=== PATIENT | male | born 1980 | race Caucasian/White ===

== ENCOUNTER 2016-10-13 11:04 | Emergency (ER) | payer BC ==
[~2016-10-13] VITALS: Ht 198.1 cm; Wt 102.0 kg
[~2016-10-13 11:04] MED LIST: PARO-18 PO
--- OUTSIDE RECORDS SUMMARY | 2016-10-13 11:07 | XMS REPORT | Continuity of Care Document ---
Author Author [facility] Organization [facility] Address Unknown Phone Unavailable Allergies Active Description Code Type Severity Reaction Onset Reported/Identified Relationship to Patient Clinical Status Yes No Known Medication Allergies NKMA N/A N/A 05/25/2014 Medications Problems Procedures Results Encounters ACCT No. Visit Date/Time Discharge Status Pt. Type Provider Facility Loc./Unit Complaint [id number] 08/19/2013 09:42:00 08/19/2013 23 :59:59 CLS Outpatient
--- OUTSIDE RECORDS SUMMARY | 2016-10-13 11:07 | XMS REPORT | Referral Summary ---
Author Organization Unknown Address Unknown Phone Unavailable Care Team Providers Care Manager Icu Name Role Phone Prasanna Joyner Primary Care Physician [phone] Encounter VC Date(s): 07/23/14 - 07/23/14 [facility], [place] [facility] [address] [place] [id number] Discharge Diagnosis: Dermal nevus of pubic region Discharge Disposition: Home or Self Care Attending Physician: Glenn Joyner MD Admitting Physician: Glenn Joyner MD Vital Signs Most recent to 1 oldest [Reference Range]: Temperature Tympanic 36 degC [36.6-38.1 degC] *LOW* (07/23/14 11:01 AM) Peripheral Pulse 89 bpm Rate [60-100 bpm] (07/23/14 11:01 AM) Respiratory Rate 16 br/min [14-20 br/min] (07/23/14 11:01 AM) Blood Pressure 122/74 mmHg [90-140/60-90 mmHg] (07/23/14 11:01 AM) Most recent to 1 oldest [Reference Range]: SpO2 100 % (07/23/14 11:01 AM) Problem List Condition Effective Dates Status Health Status Informant Alcoholism(Confirmed Active ) Anxiety(Confirmed) Active Family history of Active colon cancer(Confirmed) Fracture left radius Active & ulna(Confirmed) Gastritis(Confirmed) Active Deaf left Active ear(Confirmed) Obesity(Confirmed) Active patient Allergies, Adverse Reactions, Alerts No Known Medication Allergies Medications Centrum 1 tabs, Daily, 0 Refill(s) Start Date: 05/25/14 Status: Ordered ibuprofen 0 Refill(s) Start Date: 05/25/14 Status: Ordered Results No data available for this section Immunizations Vaccine Date Refusal Reason tetanus/diphth/pertuss (Tdap) adult/adol 03/11/10 hepatitis A-hepatitis B vaccine 06/18/06 hepatitis A-hepatitis B vaccine 09/28/04 hepatitis A-hepatitis B vaccine 08/31/04 Procedures Procedure Date Related Diagnosis Body Site Shaving of epidermal or dermal lesion, single 07/23/14 lesion, scalp, neck, hands, feet, genitalia; lesion diameter 0.6 to 1.0 cm September 27, 2012 Colonoscopy, normal repeat in 09/27/12 5 years LEFT KNEE ACL RECONSTRUCTION-REPAIR LATERAL 10/02/05 MENISCUS Hernia repair 2003 Vasectomy 2002 ORIF - Open reduction and internal fixation 1991 of fracture1 1fracture left radius and ulna Social History Social History Type Response Smoking Status Never smoker Assessment and Plan Extracted from: Title: Office Visit Note Author: Gelnn Joyner MD Date: 07/23/14 Assessment/Plan Dermal nevus of pubic region Excision was performed today with the patient' s permission verbally. I discussed wound care. Good hemostasis was achieved before patient left. Discussed washing and keeping the area clean. Oozing triple antibiotic ointment. Follow-up immediately if there is any signs or symptoms of infection.
--- OUTSIDE RECORDS SUMMARY | 2016-10-13 11:07 | XMS REPORT | Referral Summary ---
Author Author [facility] [place], [facility] Care Organization [facility] [place] [facility] Address Unknown Phone Unavailable Care Team Providers Care Delivery Representative Name Role Phone No PCP, States Primary Care Physician [phone] Encounter VC Date(s): 03/14/16 - 03/14/16 [facility] [place] [address] [place] [id number] Discharge Disposition: 01-Home or Self Care Attending Physician: Forest Gillespie PA-C Admitting Physician: Forest Gillespie PA-C Vital Signs Most recent to 1 oldest [Reference Range]: Temperature Tympanic 36.7 degC [36.6-38.1 degC] (03/14/16 4:19 PM) Peripheral Pulse 74 bpm Rate [60-100 bpm] (03/14/16 4:19 PM) Blood Pressure 144/78 mmHg [90-140/60-90 mmHg] *HI* (03/14/16 4:19 PM) SpO2 97 % (03/14/16 4:19 PM) Problem List Condition Effective Dates Status Health [...] Vaccine Date Refusal Reason tetanus/diphth/pertuss (Tdap) adult/adol 03/14/16 tetanus/diphth/pertuss (Tdap) adult/adol 03/11/10 hepatitis A-hepatitis B vaccine 06/18/06 hepatitis A-hepatitis B vaccine 09/28/04 hepatitis A-hepatitis B vaccine 08/31/04 Procedures Procedure Date Related Diagnosis Body Site September 27, 2012 Colonoscopy, normal repeat in 09/27/12 5 years LEFT KNEE ACL RECONSTRUCTION-REPAIR LATERAL 10/02/05 MENISCUS Hernia repair 2004 Vasectomy 2002 ORIF - Open reduction and internal fixation 1992 of fracture1 1fracture left radius and ulna Social History Social History Type Response Smoking Status Never smoker Assessment and Plan Extracted from: Title: Lidocaine & Marcaine Author: Nancy Flores RN Date: 03/14/16 Patient's right thumb was injected with 2% Lidocaine, lot # [id number], Exp , 5cc mixed with Marcaine 0.5%, lot # [id number], Exp 06/2017, 5 cc mixed together in a 10cc syringe by Forest Gillespie before examining right thumb. Extracted from: Title: R thumb smash injury Author: Forest Gillespie PA-C Date: 03/14/16 Assessment/Plan Injury of finger Wash daily with soap and water keep clean and dry, use stat splint as needed forprotection. Follow up if signs of infection, encouraged to perform gentlerange of motion. Diagnosis and treatment discussed. Patient advised to follow up with PCP in 2-3 days. Patient stable upon discharge , alert and orientated with no apparent distress, and indicated understanding of discharge instructions. Ordered: XR Finger Thumb Right
[2016-10-13 11:08] VITALS: Ht 198.1 cm; Wt 102.0 kg
[2016-10-13] MEDS ORDERED: OMEG300C PO (11:42)
[2016-10-13] MEDS ORDERED: MULT1TAB69 PO (11:42)
--- NOTE | 2016-10-13 11:48 | NUR ---
PAIN STATUS/PROVIDER NOTIFIED PT LYING IN LEFT POSITION AND ROCKING BACK AND FORTH AND MOANING, KNEES DRAWN TO CHEST AND REPORTING SEVERE PAIN. SKIN IS MOIST. PT RATES PAIN A 9/10 TO LEFT FLANK/LEFT ABDOMEN. DR. DUMONT NOTIFIED, NO ORDERS AT THIS TIME.
--- NOTE | 2016-10-13 12:13 | ERPDOC ---
Departure Disposition Decision Date: Oct 13, 2016 Disposition Decision Time: 13:23 (DARIA JACKSON APRN) Disposition: 01 DISCHARGED HOME, SELF-CARE Impression Impression (DARIA JACKSON APRN) Impression: Primary Impression: Left ureteral stone Additional Impression: LLL pneumonia Pneumonia type: due to unspecified organism Qualified Codes: J18.1 - Lobar pneumonia, unspecified organism Severity: Moderate (DARIA JACKSON APRN) Condition: Improved Seen By: Mid-level only (DARIA JACKSON APRN) Referrals: SWATI LEBRON MD (Family) Patient Instructions: Kidney Stones (ED) Problems/Meds/Labs Reviewed?: Yes Medications reviewed and manag: Yes (DARIA JACKSON APRN) Additional Instructions: You are passing a kidney stone on left. You may take [place] 5/325mg, 1-2 tabs every 4-6 hour as needed for pain. This medication may cause drowsiness so avoid driving, operating of the machinery or drinking alcohol while taking. This medication may also cause constipation so you meaning to take a stool softener while taking. You may take 800 mg of ibuprofen every 8 hours with food for pain. Take Flomax 0.4 mg once daily. Drink 8-12 glasses of water daily. Strain your urine for stone. If you have not passed kidney stone (still having pain) by Sunday follow with Dr. Engel or urologist of your choice for re-evaluation. Your CT scan showed a possible early pneumonia in LLL. Take azithromycin as ordered. Follow up with your PCP for re-evaluation after finishing antibiotic. Follow treatment plan. Follow up care ordered?: Yes Mental Status: Alert, Oriented (DARIA JACKSON APRN) Scripts Azithromycin (Azithromycin) 250 Mg Tablet 1 TAB PO DAILY, #6 TAB TAKE TWO TABLETS ON DAY ONE, THEN ONE TABLET DAILY UNTIL ALL TAKEN. Prov: DARIA JACKSON APRN 10/13/16 Tamsulosin HCl (Flomax) 0.4 Mg Capsule 0.4 MG PO HS for 5 Days, #5 CAP Take 1 capsule, by mouth, one time a day at BEDTIME. Prov: DARIA JACKSON APRN 10/13/16 Hydrocodone/Acetaminophen ([place] 5-325 Tablet) 5-325 Tablet 1-2 TAB PO Q4-6HPRN for PAIN, #30 TAB Prov: DARIA JACKSON APRN 10/13/16 HPI - Abdominal Pain General Chief Complaint: Abdominal Pain Stated Complaint: L FLANK PAIN Time Seen by Provider: 12:13 Source: patient (DARIA JACKSON APRN) Time Seen by Provider: 12:19 (JULISSA DUMONT DO) HPI - Abdominal Pain Initial Comments 36-year-old male presents to ER with complaints of periumbilical pain and left flank pain. Patient states pain started out in his left flank about 2 hours ago. Now pain is reproducible in periumbilical area. Patient admits nausea and has had several emesis Patient states he had a difficult time trying to urinate and urine was dark in color. Patient report previous kidney stone approx. 10-12 years ago. Pain Scale: Now: 9/10 Quality: aching, sharpness Location: periumbilical Associated Symptoms: nausea/vomiting, DENIES: chest pain, diaphoresis, fatigue , fever/chills, headache, heartburn, shortness of breath, swelling/mass in abdomen, weakness (DARIA JACKSON APRN) Allergies: Coded Allergies: No Known Allergies (Unverified , 12/31/11) Past History Past Medical History Metabolic: DENIES: diabetes Cardiac: DENIES: angina Respiratory: DENIES: asthma GI: DENIES: ulcers Male: kidney stones Neurological: DENIES: seizures Musculoskeletal: DENIES: back pain Psychological: anxiety (DARIA JACKSON APRN) Surgical History General: hernia Reproductive/: other (vasectomy) (DARIA JACKSON APRN) Family History Family PMH: FOUND: other (noncontributory) (DARIA JACKSON APRN) Social History Current Occupational Status: employed (DARIA JACKSON APRN) Review of Systems Constitutional Constitutional: DENIES: chills, dizziness, fever, weakness (DARIA JACKSON APRN) Eyes General: DENIES: erythema, exudate Lids/Accessories: DENIES: erythema, swelling (DARIA JACKSON APRN) ENMT Ears: DENIES: pain Hearing: DENIES: hearing loss Sinuses: DENIES: congestion, rhinorrhea Mouth/Throat: DENIES: sore throat (DARIA JACKSON APRN) Cardiovascular Cardiac: DENIES: chest pain, murmur Rhythm/Rate: DENIES: palpitations (JACKSON,DARIA A DISTRICT [employer]CH MANAGER) Pulmonary Respiratory: DENIES: cough, dyspnea (JENNA JACKSONS A DISTRICT BR[employer]CH MANAGER) GI Upper Abdomen: nausea, DENIES: pain, vomiting Lower Abdomen: pain, see HPI, DENIES: blood in stool, diarrhea (JACKSONJENNAS A DISTRICT [employer] MANAGER) General: DENIES: dysuria, pain (JACKSONJENNAS A DISTRICT [employer]CH MANAGER) Musculoskeletal General: DENIES: joint pain, pain, tenderness (JENNA JACKSONS A DISTRICT BR[employer]CH MANAGER) Integumentary Skin: DENIES: color change, itching, rash (JACKSONJENNAS A DISTRICT [employer] MANAGER) Neurological General: DENIES: ataxia, change in strength, numbness, paralysis/paresis, weakness (JENNA JACKSONS A DISTRICT BR[employer]CH MANAGER) Psychiatric Psychiatric: DENIES: anxiety, depression, nervousness (JENNA JACKSONS A DISTRICT BRANCH MANAGER) Physical Exam General General Nourishment: well nourished, well developed, adult General Body Habitus: well groomed (JENNA JACKSONS A DISTRICT BRANCH MANAGER) Vitals and Pain First Documented Vital Signs Date Time Temp Pulse Resp B/P Pulse Ox O2 Delivery O2 Flow Rate FiO2 10/13/16 11:08 98.1 76 16 165/76 100 Room Air (JULISSA DUMONT DO) Vitals and Pain Weight: Kilograms: 102.000 Height (feet): 6 Height (inches): 6.00 Triage Pain Scale: (JENNA JACKSONS A DISTRICT [employer] MANAGER) Eyes (brief) Eyes Brief: found: EOMI (JENNA JACKSONS A DISTRICT [employer] MANAGER) ENMT (brief) ENMT Brief: NOT FOUND: nasal exudate, nasal swelling (JENNA JACKSONS A DISTRICT [employer]CH MANAGER) Neck (brief) Neck: FOUND: trachea midline (JENNA JACKSONS A DISTRICT BR[employer]CH MANAGER) Respiratory (brief) Respiratory: FOUND: clear all delong, equal bilaterally, symmetrical (RENETTA DARIA A DISTRICT [employer]CH MANAGER) Cardiovascular (brief) Cardiac: FOUND: regular rate, regular rhythm (RENETTADARIA A DISTRICT BR[employer]CH MANAGER) Abdomen Palpation: FOUND: involuntary guarding, soft, tender (reproducible TTP in periumbilical area), voluntary guarding, NOT FOUND: McBurney's point tender, Psoas sign, Rosving's sign, hepatomegaly, rebound, splenomegaly Auscultation: FOUND: normoactive (x4) (JENNA JACKSONS A DISTRICT BR[employer]CH MANAGER) Musculoskeletal (brief) Musculoskeletal Brief: NOT FOUND: deformity, loss of motion (DARIA JACKSON APRN) Integumentary (brief) Integumentary Brief: FOUND: dry, pink, warm (DARIA JACKSON APRN) Neurologic (brief) Neurological Brief: FOUND: motor-no gross deficits, sensory-no gross deficits ( DARIA JACKSON APRN) Psychiatric (brief) Psychiatric Brief: FOUND: alert, oriented (DARIA JACKSON APRN) Differential Diagnoses Considering: Appendicitis, Diverticulitis, Ileus, Pyelonephritis, Renal Colic, UTI (DARIA JACKSON APRN) Progress Results/Orders Orders Procedure Category Date Status Time Cbc W/Auto LAB 10/13/16 Complete Diff-Reflex Manual 12:14 Cmp - Comprehensive LAB 10/13/16 Complete Metabolic 12:14 Iv Lock (Ed Only) EDM 10/13/16 Transmitted 12:14 Normal Saline (Normal PHA 10/13/16 Complete Saline Iv) 12:14 Hydromorphone PHA 10/13/16 Complete (Dilaudid) 12:15 Ondansetron Inj PHA 10/13/16 Complete (Zofran) 12:15 Ct Renal W/O Contrast CT 10/13/16 Resulted Ketorolac (Toradol) PHA 10/13/16 Complete 13:30 UA, LAB 10/13/16 Complete Dip&Micro(Complete) & 13:23 (JULISSA DUMONT DO) Lab Results Laboratory Tests Test 10/13/16 11:44 10/13/16 13:23 White Blood Count 16.5T/MM3 Red Blood Count 5.05M/MM3 Hemoglobin 15.8GM/DL Hematocrit 44.9% Mean Corpuscular Volume 88.9UM3 Mean Corpuscular Hemoglobin 31.3UUG Mean Corpuscular Hemoglobin Concent 35.2GM/DL RDW Standard Deviation 37.3FL Platelet Count 314T/MM3 Mean Platelet Volume 9.7UM3 Immature Granulocyte % (Auto) % Neutrophils (%) (Auto) % Lymphocytes (%) (Auto) % Monocytes (%) (Auto) % Eosinophils (%) (Auto) % Basophils (%) (Auto) % Absolute Immature Granulocyte (auto T/MM3 Absolute Neutrophils (auto) T/MM3 Absolute Lymphocytes (auto) T/MM3 Absolute Monocytes (auto) T/MM3 Absolute Eosinophils (auto) T/MM3 Absolute Basophils (auto) T/MM3 Neutrophils % (Manual) 83.0% Lymphocytes % (Manual) 9.0% Monocytes % (Manual) 7.0% Eosinophils % (Manual) 1.0% Absolute Neutrophils (Manual) 13.7T/MM3 Lymphocytes # (Manual) 1.5T/MM3 Monocytes # (Manual) 1.2T/MM3 Eosinophils # (Manual) 0.2T/MM3 Red Cell Morphology Comment Normal Turbidity < 20 Sodium Level 144MEQ/L Potassium Level 3.8MEQ/L Chloride Level 105MEQ/L Carbon Dioxide Level 24MEQ/L Anion Gap 15MEQ/L Blood Urea Nitrogen 15.0MG/DL Creatinine 1.2MG/DL Glomerular Filtration Rate Calc 68 BUN/Creatinine Ratio 13RATIO Glucose Level 125MG/DL Calculated Osmolality 279MOSM/KG Calcium Level 9.7MG/DL Total Bilirubin 0.90MG/DL Icterus Index < 2 Aspartate Amino Transf (AST/SGOT) 37U/L Alanine Aminotransferase (ALT/SGPT) 34U/L Alkaline Phosphatase 49U/L Total Protein 6.3G/DL Albumin 3.9G/DL Globulin 2.4G/DL Albumin/Globulin Ratio 1.6RATIO Chemistry Specimen Hemolysis < 15 Urine Collection Type Voided-not cc-midstr Urine Color Yellow Urine Turbidity Sl cloudy Urine pH >=9.0 Urine Specific [place] 1.015 Urine Protein 1+ Urine Glucose (UA) Negative Urine Ketones 1+ Urine Blood 3+ Urine Nitrite Negative Urine Bilirubin Negative Urine Urobilinogen 0.2EU/DL Urine Leukocyte Esterase Negative Urine RBC Tntc/HPF Urine WBC None seen/HPF Urine Amorphous Phosphates Many Urine Bacteria 2+ Urine Culture Indicated Cult not indicated (JULISSA DUMONT DO) Medications Current ED Medications Sodium Chloride (Normal Saline IV) 1,000 ml @ 200 mls/hr Q5H ONCE IV Last administered on 10/13/16 12:23; Start 10/13/16 at 12:14; Stop 10/13/16 at 14:38 ; Status DC Hydromorphone HCl (Dilaudid) 1 mg O ONCE IV Last administered on 10/13/16 12: 27; Start 10/13/16 at 12:15; Stop 10/13/16 at 12:16; Status DC Ondansetron HCl (Zofran) 4 mg O ONCE IV Last administered on 4/14/17at 12:24; Start 10/13/16 at 12:15; Stop 10/13/16 at 12:16; Status DC Ketorolac Tromethamine (Toradol) 30 mg O ONCE IV Last administered on 13:26; Start 10/13/16 at 13:30; Stop 10/13/16 at 13:31; Status DC (JULISSA DUMONT DO) Progress Progress Patient reports that pain has significantly improved after dilaudid and toradol. WBC 16.5 no bands CMP unremarkable UA RBC Tntc Patient remain pain free at this time. CT indicates left ureteral calculi I discussed CT findings with patient including minor infectious/inflammatory process of the lower left lobe. Patient has seen someone at the [place] [facility] [place] in the past and he will follow with him early next week if he feels like he has not passed the stone. Patient verbalized understanding of treatment plan, follow-up as discussed and return precautions. Patient sent with strainer. (DARIA JACKSON APRN) CT CT : CT: Renal IV contrast Interpretation: Abnormal (left ureteral stone, Gabriel of the left lower lobe which suggestive of minor infection or inflamation), Reviewed Written Report (DARIA JACKSON APRN) DARIA JACKSON APRN Oct 13, 2016 12:13 JULISSA DUMONT DO Oct 13, 2016 18:45
[2016-10-13] MEDS ORDERED: NORMAL SALINE 1,000 ML IV ONE (12:14)
[2016-10-13] MEDS ORDERED: ONDANSETRON 4mg/2ml INJECTION IV ONE (12:15)
[2016-10-13] MEDS ORDERED: HYDROMORPHONE 2mg/ml INJECTION IV ONE (12:15)
[2016-10-13 12:22] LABS: HCT - HEMATOCRIT 44.9 % (41-53); HGB - HEMOGLOBIN 15.8 GM/DL (13.5-17.5); MEAN CORPUSCULAR HGB 31.3 UUG (26-34); MEAN CORPUSCULAR HGB CONC(MCHC 35.2 GM/DL (31-37); MEAN CORPUSCULAR VOLUME 88.9 UM3 (80-100); MEAN PLATELET VOLUME 9.7 UM3 (9.4-12.4); RED BLOOD COUNT 5.05 M/MM3 (4.50-5.90); WBC - WHITE BLOOD COUNT 16.5 T/MM3 (4.5-11.0)
[2016-10-13 12:29] LABS: ALBUMIN 3.9 G/DL (3.5-5.0); ALBUMIN/GLOBULIN RATIO 1.6 RATIO (1.1-2.2); ALKALINE PHOSPHATASE 49 U/L (38-126); ALT (SGPT) 34 U/L (21-72); ANION GAP 15 MEQ/L (5-15); AST (SGOT) 37 U/L (17-59); BUN/CREATININE RATIO 13 RATIO (6-26); CALCIUM 9.7 MG/DL (8.4-10.2); CHLORIDE 105 MEQ/L (98-107); CO2 - CARBON DIOXIDE 24 MEQ/L (22-30); CREATININE 1.2 MG/DL (0.8-1.5); GLOMERULAR FILTRATION RATE 68; GLUCOSE 125 MG/DL (75-110); POTASSIUM 3.8 MEQ/L (3.6-5); SODIUM 144 MEQ/L (134-144); TOTAL PROTEIN 6.3 G/DL (6.3-8.2)
--- OUTSIDE RECORDS SUMMARY | 2016-10-13 12:41 | XMS REPORT | Continuity of Care Document ---
Author Author [facility] Organization [facility] Address Unknown Phone Unavailable Allergies Active Description Code Type Severity Reaction Onset Reported/Identified Relationship to Patient Clinical Status Yes No Known Medication Allergies NKMA N/A N/A 05/25/2014 Medications Problems Procedures Results Encounters ACCT No. Visit Date/Time Discharge Status Pt. Type Provider Facility Loc./Unit Complaint [id number] 08/19/2013 09:42:00 08/19/2013 23 :59:59 CLS Outpatient
[2016-10-13 12:49] LABS: EOSINOPHILS # (MANUAL) 0.2 T/MM3 (0-0.5); LYMPHOCYTES # (MANUAL) 1.5 T/MM3 (1-4.8); MONOCYTES # (MANUAL) 1.2 T/MM3 (0-0.8); NEUTROPHILS #(MANUAL)-ABSOLUTE 13.7 T/MM3 (1.8-7.7); TOTAL CELLS COUNTED 100 %
--- NOTE | 2016-10-13 12:50 | NUR ---
TO CT PER CART PT DROWSY. MUCH MORE COMFORTABLE
--- NOTE | 2016-10-13 13:00 | NUR ---
RETURNED FROM CT
--- NOTE | 2016-10-13 13:10 | NUR ---
REPORT TO NYDIA ORTIZ
--- NOTE | 2016-10-13 13:17 | DI ---
Indication: ITS.REASON: left flank pain and periumbilical pain PROCEDURE: CT RENAL W/O CONTRAST: Encounter: Initial Comparison: None Technique: Axial CT images were performed through the abdomen and pelvis without intravenous contrast. Coronal and sagittal two-dimensional reformats. Automated Exposure Control and Iterative Reconstruction dose reducing techniques were utilized. Findings: Small amount of groundglass opacity in the left lower lobe with a tiny 2 to 3 mm subpleural pulmonary nodule. Right lung base is clear. The unenhanced contours of the liver, gallbladder, spleen, pancreas and adrenal glands are within normal limits. The right kidney contains a 2 mm nonobstructing interpolar area stone. No right ureteral stone. The bladder is normal. 5 mm obstructing left ureteral stone at the crossing of the iliac vessels. Resultant mild to moderate left hydronephrosis and hydroureter. Additional 2 mm interpolar area left renal stone. No abdominal or pelvic lymphadenopathy. Prostate and rectum are normal. No free fluid. No evidence of a bowel obstruction. The appendix is normal. Bone windows show no acute findings. Impression: 1. Obstructing 5 mm left mid ureteral stone. 2. Additional tiny bilateral renal stones. 3. Minor infectious or inflammatory opacity in the left lower lobe. .
[2016-10-13] MEDS ORDERED: KETOROLAC 30mg/ml INJECTION IV ONE (13:30)
[2016-10-13 13:32] LABS: BLOOD, URINE 3+ (NEGATIVE); COLOR,URINE YELLOW (YELLOW); LEUKOCYTE ESTERASE ,URINE NEGATIVE (NEGATIVE); NITRITE,URINE NEGATIVE (NEGATIVE); UROBILINOGEN,URINE 0.2 EU/DL (NORMAL)
[2016-10-13 13:39] LABS: RBC,URINE TNTC /HPF (0-3); WBC,URINE NONE SEEN /HPF (0-5)
[2016-10-13 13:40] LABS: BACTERIA,URINE 2+ (NEGATIVE)
[2016-10-13] MEDS ORDERED: AZIT250T6 PO (14:17)
[2016-10-13] MEDS ORDERED: HYDR-4246 PO (14:17)
[2016-10-13] MEDS ORDERED: TAMS-1 PO (14:17)
[2016-10-13 14:37] VITALS: BP 100/54; PULSE 77; RESP 16; TEMP 98.1; O2SAT 97
== END 2016-10-13 14:37 | disposition home or self-care (01) ==
LOC: ED 11:04
DX: N13.2 Hydronephrosis with renal and ureteral calculous obstruction (principal); J18.9 Pneumonia, unspecified organism; Z87.442 Personal history of urinary calculi
CPT/HCPCS: 74176; 80053; 81001; 85025; 96361; 96374; 96375; 99284; J1170; J1885; J2405; J7030